=== PATIENT | female | born 1980 | race African-American/Black ===

== ENCOUNTER 2017-03-12 08:13 | Emergency (ER) | payer SELFPAY ==
--- NOTE | 2017-03-12 08:33 | ER Document Report ---
ED General - General Chief Complaint: Abdominal Pain Stated Complaint: STOMACH PAIN Mode of Arrival: Ambulatory Information source: Patient Notes: Patient presents to the emergency department with complaints of lower abdominal discomfort, smelly vaginal discharge, itchy for the past 2-3 days. Patient denies pain with void. She denies fever vomiting diarrhea. She reports this has happened before after she is finished her menses. Patient reports one sexual partner, reports she is . Denies STD. TRAVEL OUTSIDE OF THE [place] IN LAST 30 DAYS: No - HPI Onset: Other - 3 days Onset/Duration: Persistent Quality of pain: Other - Discomfort Severity: Mild Pain Level: 1 Associated symptoms: Other - Smelly vaginal discharge - Related Data Allergies/Adverse Reactions: No Known Allergies Allergy (Verified 03/12/17 08:20) Past Medical History - General Information source: Patient Last Menstrual Period: moderate - Social History Smoking Status: Unknown if Ever Smoked Cigarette use (# per day): No Chew tobacco use (# tins/day): No Frequency of alcohol use: None Drug Abuse: None Occupation: [employer] Lives with: Family Family History: Reviewed & Not Pertinent Patient has suicidal ideation: No Patient has homicidal ideation: No - Medical History Medical History: Negative Renal/ Medical History: Denies: Hx Peritoneal Dialysis Past Surgical History: Reports: Hx Gynecologic Surgery - ovarian cyst removal - Immunizations Hx Diphtheria, Pertussis, Tetanus Vaccination: No Review of Systems - Review of Systems Notes: Review HPI for review of systems., All other systems negative Physical Exam - Vital signs Vitals: Temp Pulse Resp BP Pulse Ox 98.2 F 87 20 140/79 H 100 03/12/17 08:20 03/12/17 08:20 03/12/17 08:20 03/12/17 08:20 03/12/17 08:20 - Notes Notes: PHYSICAL EXAMINATION: GENERAL: Well-appearing and in no acute distress HEAD: Atraumatic, normocephalic. EYES: Pupils equal round and reactive to light, extraocular movements intact, sclera anicteric, conjunctiva are normal. ENT: nares patent, oropharynx clear without exudates. Moist mucous membranes. NECK: Normal range of motion, supple without lymphadenopathy LUNGS: CTAB and equal. No wheezes rales or rhonchi. HEART: Regular rate and rhythm without murmurs ABDOMEN: Soft, no tenderness. No guarding, no rebound EXTREMITIES: Normal range of motion, no pitting edema. No cyanosis. NEUROLOGICAL: Cranial nerves grossly intact. Normal sensory/motor exams. PSYCH: Normal mood, normal affect. SKIN: Warm, Dry, normal turgor, no rashes or lesions noted Course - Re-evaluation Re-evalutation: 03/12/17 09:36 Patient tolerated pelvic without any problems. Cultures sent. 03/12/17 She was instructed on trichomonas. Patient reports that she did not tell her that she had trichomonas last time she was here and diagnosed with it. We discussed trichomonas, STD. Patient was instructed to contact her so he can be treated. Patient also opted to leave now without results of GC chlamydia. She will be contacted should she need treatment. She was instructed to follow-up with the health department for recheck. She verbalized understanding to all instructions. - Vital Signs Vital signs: Temp Pulse Resp BP Pulse Ox 98.1 F 72 14 135/84 H 100 03/12/17 10:48 03/12/17 10:48 03/12/17 10:48 03/12/17 10:48 03/12/17 10:48 - Laboratory Result Diagrams: 03/12/17 09:12 03/12/17 09:12 Laboratory results interpreted by me: 03/12/17 03/12/17 03/12/17 09:12 09:12 09:19 Hgb 9.2 L Hct 29.5 L MCV 62 L MCH 19.4 L MCHC 31.1 L RDW 21.0 H Sodium 145.3 H Chloride 108 H Ur Leukocyte Esterase MODERATE H Procedures - Pelvic Exam Pelvic exam Cultures obtained: Yes Wet prep obtained: Yes Herpes culture obtained: No POC sent to lab: No Foreign body removed: No Bimanual exam performed: Yes Witnessed by: Tanner Fry PCP Discharge - Discharge Clinical Impression: Elevated blood pressure reading, Vaginal discharge, Trichomonas infection Anemia Qualifiers: Anemia type: unspecified type Qualified Code(s): D64.9 - Anemia, unspecified Condition: Stable Disposition: HOME, SELF-CARE Instructions: Abdominal Pain ([facility]), Metronidazole ([facility]), [facility], Trichomonas Infection ([facility]), Anemia, Iron Deficiency ([facility]) Additional Instructions: *You have been evaluated for vaginal discharge, trichomonas, anemia *The STD cultures are pending, you will be contacted should you need treatment *Take medication as prescribed *Follow up with your S[employer] L[employer]AGE [employer]PRETER or the health department for recheck *Avoid sexual intercourse until follow up *Return to ED for worsening condition, changes, needs Prescriptions: Metronidazole [Flagyl 500 mg Tablet] 500 mg PO BID #14 tablet Forms: Elevated Blood Pressure
[2017-03-12 09:19] LABS: ABSOLUTE BASOPHILS # (AUTO) 0.1 10^3/uL (0.0-0.2); ABSOLUTE EOSINOPHILS # (AUTO) 0.1 10^3/uL (0.0-0.6); ABSOLUTE LYMPHOCYTES (AUTO) 1.6 10^3/uL (0.5-4.7); ABSOLUTE MONOCYTES (AUTO) 0.4 10^3/uL (0.1-1.4); ABSOLUTE NEUT (AUTO) 2.7 10^3/uL (1.7-8.2); BASOPHILS % (AUTO) 1.6 % (0-2); EOSINOPHILS % (AUTO) 2.4 % (0-6); HEMATOCRIT 29.5 % (36.0-47.0); HEMOGLOBIN 9.2 g/dL (12.0-15.5); HGB HCT DIFFERENCE -1.9; LYMPHOCYTES % (AUTO) 31.8 % (13-45); MEAN CORPUSCULAR HEMOGLOBIN 19.4 pg (27.0-33.4); MEAN CORPUSCULAR HGB CONC 31.1 g/dL (32.0-36.0); MONOCYTES % (AUTO) 8.7 % (3-13); RED BLOOD COUNT 4.74 10^6/uL (3.72-5.28); SEGMENTED NEUTROPHILS % (AUTO) 55.5 % (42-78)
[2017-03-12 09:37] LABS: ALANINE AMINOTRANSFERASE 19 U/L (9-52); ALBUMIN 4.6 g/dL (3.5-5.0); ALKALINE PHOSPHATASE 53 U/L (38-126); ANION GAP 14 (5-19); ASPARTATE AMINO TRANSFERASE 15 U/L (14-36); BILIRUBIN,DIRECT 0.1 mg/dL (0.0-0.4); BILIRUBIN,TOTAL 0.5 mg/dL (0.2-1.3); BLOOD UREA NITROGEN 12 mg/dL (7-20); CALCIUM 9.5 mg/dL (8.4-10.2); CARBON DIOXIDE 23 mmol/L (22-30); CHLORIDE 108 mmol/L (98-107); CREATININE RESULT 0.72 mg/dL (0.52-1.25); GLUCOSE 101 mg/dL (75-110); POTASSIUM 4.2 mmol/L (3.6-5.0); SODIUM 145.3 mmol/L (137-145); TOTAL PROTEIN 8.2 g/dL (6.3-8.2)
[2017-03-12 09:47] LABS: APPEARANCE,URINE CLEAR; BILIRUBIN,URINE NEGATIVE (NEGATIVE); GLUCOSE, URINE NEGATIVE (NEGATIVE); KETONES,URINE NEGATIVE (NEGATIVE); LEUKOCYTE ESTERASE,URINE MODERATE (NEGATIVE); NITRITE,URINE NEGATIVE (NEGATIVE); PROTEIN,URINE NEGATIVE (NEGATIVE); URINE SPECIFIC GRAVITY 1.021; UROBILINOGEN,URINE NEGATIVE mg/dL (<2.0)
[2017-03-12 10:07] LABS: MEAN CORPUSCULAR VOLUME 62 fl (80-97); OVALOCYTES 3+; POIKILOCYTOSIS 3+; WHITE BLOOD COUNT 4.9 10^3/uL (4.0-10.5)
[2017-03-12 10:08] LABS: ANISOCYTOSIS 2+; MICROCYTOSIS 3+; POLYCHROMASIA SLIGHT; ROULEAUX SLIGHT; SCHISTOCYTES 1+
[2017-03-12 10:52] VITALS: BP 135/84
[2017-03-12 12:37] LABS: CHLAM PCR NOT DETECTED (NOT DETECT)
[2017-03-12 15:27] LABS: PATH REVIEW PATHOLOGIST REVIEWED
== END 2017-03-12 10:53 | disposition home or self-care (01) ==
LOC: ER 08:13
DX: A59.9 Trichomoniasis, unspecified (principal); R03.0 Elevated blood-pressure reading, without diagnosis of hypertension; D64.9 Anemia, unspecified; N89.8 Other specified noninflammatory disorders of vagina; R10.9 Unspecified abdominal pain
CPT/HCPCS: 36415; 80053; 81001; 84703; 85025; 87210; 87491; 87591; 99284

== ENCOUNTER 2017-03-25 11:42 | Emergency (ER) | payer SELFPAY ==
--- NOTE | 2017-03-25 12:07 | ER Document Report ---
HPI - HPI Patient complains to provider of: cough, sore throat Onset/Duration: Persistent Quality of pain: Achy Pain Level: 2 Context: She presents to the emergency department with cough and sputum for the last 4-5 days since Friday. Also complains of sore throat. Denies fever vomiting diarrhea. Reports she feels like she is rattling when she lays down. Denies past medical history of asthma cardiac disease. Associated Symptoms: Sore throat Exacerbated by: Denies Relieved by: Denies Similar symptoms previously: No Recently seen / treated by doctor: No - REPRODUCTIVE LMP: 03/15/17 Reproductive: DENIES: : - DERM Skin Color: Normal Past Medical History - General Information source: Patient - Social History Smoking Status: Unknown if Ever Smoked Cigarette use (# per day): No Frequency of alcohol use: None Drug Abuse: None Occupation: [employer] Lives with: Family Family History: Reviewed & Not Pertinent Patient has suicidal ideation: No Patient has homicidal ideation: No - Medical History Medical History: Negative Renal/ Medical History: Denies: Hx Peritoneal Dialysis Past Surgical History: Reports: Hx Gynecologic Surgery - ovarian cyst removal - Immunizations Hx Diphtheria, Pertussis, Tetanus Vaccination: No Vertical Provider Document - CONSTITUTIONAL Agree With Documented VS: Yes Exam Limitations: No Limitations General Appearance: WD/WN, No Apparent Distress - INFECTION CONTROL TRAVEL OUTSIDE OF THE [place] IN LAST 30 DAYS: No - HEENT HEENT: Atraumatic, Normocephalic, Pharyngeal Erythema - No peritonsillar abscess good clear voice no trismus. negative: Conjuctival Injection, Pharyngeal Exudate, Tympanic Membrane Red, Tympanic Membrane Bulging - NECK Neck: Normal Inspection, Supple. negative: Lymphadenopathy-Left, Lymphadenopathy-Right - RESPIRATORY Respiratory: No Respiratory Distress, Rhonchi. negative: Wheezing O2 Sat by Pulse Oximetry: 100 - CARDIOVASCULAR Cardiovascular: Regular Rate, Regular Rhythm - GI/ABDOMEN Gastrointestinal: Abdomen Soft, Abdomen Non-Tender - BACK Back: Normal Inspection - MUSCULOSKELETAL/EXTREMETIES Musculoskeletal/Extremeties: EDITH SERRANO - NEURO Level of Consciousness: Awake, Alert, Appropriate Motor/Sensory: No Motor Deficit - DERM Integumentary: Warm, Dry, No Rash Course - Re-evaluation Re-evalutation: 03/25/17 13:33 Patient instructed on RML pneumonia, zithromax, norco, steroids. Patient instructed on importance of monitoring temperature Tylenol as indicated. Patient verbalized understanding to all instructions. No Shortness of breath, speaks in clear sentences. - Vital Signs Vital signs: Temp Pulse Resp BP Pulse Ox 98.2 F 91 20 142/95 H 100 03/25/17 11:53 03/25/17 11:53 03/25/17 11:53 03/25/17 11:53 03/25/17 11:53 - Diagnostic Test Radiology reviewed: Image reviewed, Reports reviewed - rml Pneumonia Discharge - Discharge Clinical Impression: Cough, Sore throat Pneumonia Qualifiers: Laterality: right Lung location: middle lobe of lung Condition: Stable Disposition: HOME, SELF-CARE Instructions: Pneumonia ([facility]), Azithromycin ([facility]), Steroid Medication, Oral Narcotic Medication ([facility]), Sore Throat ([facility]) Additional Instructions: *You have been evaluated for a cough, pneumonia, bronchitis *Take medication as prescribed *Increase fluids *Monitor your temperature, take Tylenol as indicated *Follow up with a primary care provider within one week for recheck *Return to ED for increasing fever, cough, worsening condition, changes, needs Prescriptions: Azithromycin 250 mg PO DAILY #4 tablet Hydrocodone/Acetaminophen [[place] 5-325 Tablet] 1 each PO QID #15 tablet Prednisone [Deltasone 20 mg Tablet] 60 mg PO DAILY #9 tablet Forms: Elevated Blood Pressure, Return to Work
[2017-03-25] MEDS ORDERED: PREDNISONE 20 MG TABLET PO ONE (13:16)
[2017-03-25] MEDS ORDERED: AZITHROMYCIN 250 MG TABLET PO ONE (13:16)
[2017-03-25 13:55] VITALS: BP 140/90
== END 2017-03-25 13:55 | disposition home or self-care (01) ==
LOC: ER 11:42
DX: J18.9 Pneumonia, unspecified organism (principal); R05 Cough; J02.9 Acute pharyngitis, unspecified
CPT/HCPCS: 99283; 87070; 87880; 71020; J7512

== ENCOUNTER 2017-09-01 11:33 | Emergency (ER) | payer SELFPAY ==
[2017-09-01] MEDS: NORMAL SALINE 1000 ML 1,000 ML IV PRN ×2 (12:27→13:33)
[2017-09-01 12:48] LABS: HEMOGLOBIN 9.5 g/dL (12.0-15.5); HGB HCT DIFFERENCE -1.5; MEAN CORPUSCULAR HEMOGLOBIN 22.7 pg (27.0-33.4); MEAN CORPUSCULAR HGB CONC 31.8 g/dL (32.0-36.0); MEAN CORPUSCULAR VOLUME 71 fl (80-97); RED BLOOD COUNT 4.21 10^6/uL (3.72-5.28); RED CELL DISTRIBUTION WIDTH 21.1 % (11.5-14.0); WHITE BLOOD COUNT 7.6 10^3/uL (4.0-10.5)
[2017-09-01 13:05] LABS: ANION GAP 11 (5-19); BLOOD UREA NITROGEN 9 mg/dL (7-20); CALCIUM 9.2 mg/dL (8.4-10.2); CARBON DIOXIDE 25 mmol/L (22-30); CHLORIDE 103 mmol/L (98-107); CREATININE RESULT 0.76 mg/dL (0.52-1.25); GLUCOSE 101 mg/dL (75-110); POTASSIUM 4.6 mmol/L (3.6-5.0); SODIUM 138.7 mmol/L (137-145)
[2017-09-01 13:32] LABS: BASOPHILS % (MANUAL) 0 % (0-2); EOSINOPHILS % (MANUAL) 1 % (0-6); LYMPHOCYTES % (MANUAL) 11 % (13-45); TOTAL CELLS COUNTED 100
[2017-09-01 13:39] LABS: ANISOCYTOSIS 3+; HYPOCHROMASIA 2+; MICROCYTOSIS 1+; POIKILOCYTOSIS 1+; POLYCHROMASIA 1+; TOXIC GRANULATION SLIGHT; TOXIC VACUOLATION PRESENT
[2017-09-01 13:40] LABS: TEAR DROP CELLS SLIGHT
[2017-09-01 13:42] LABS: OVALOCYTES 3+
[2017-09-01] MEDS ORDERED: ONDANSETRON HCL INJ/PF 4 MG/2 ML SDV IV ONE (13:55)
[2017-09-01] MEDS ORDERED: KETOROLAC TROMETHAMINE INJ/PF 30 MG/1 ML SDV IV ONE (13:55)
--- NOTE | 2017-09-01 13:58 | ER Document Report ---
ED General - General Chief Complaint: Insect Bite Stated Complaint: INSECT BITE LT LEG Time Seen by Provider: 09/01/17 12:07 TRAVEL OUTSIDE OF THE [place] IN LAST 30 DAYS: No - HPI Patient complains to provider of: Insect bites tachycardia headache Notes: Patient coming in for evaluation of insect bites. Patient states that she is concerned that they are infected they are itchy and painful on the left thigh. Patient states also feeling feverish and having chills and possible night sweats. Upon triage patient was noted to have a heart rate at 130. Patient denies any recent travel denies measured fever. Denies any recent antibiotics. Upon my evaluation patient is fully cloth - Related Data Allergies/Adverse Reactions: No Known Allergies Allergy (Verified 03/25/17 11:49) Past Medical History - Social History Smoking Status: Never Smoker Chew tobacco use (# tins/day): No Frequency of alcohol use: None Drug Abuse: None Family History: Reviewed & Not Pertinent Patient has suicidal ideation: No Patient has homicidal ideation: No Renal/ Medical History: Denies: Hx Peritoneal Dialysis Past Surgical History: Reports: Hx Gynecologic Surgery - ovarian cyst removal - Immunizations Hx Diphtheria, Pertussis, Tetanus Vaccination: No Review of Systems - Review of Systems Constitutional: No symptoms reported EENT: No symptoms reported Cardiovascular: No symptoms reported Respiratory: No symptoms reported Gastrointestinal: No symptoms reported Genitourinary: No symptoms reported Female Genitourinary: No symptoms reported Musculoskeletal: No symptoms reported Skin: Other - Inset bite Hematologic/Lymphatic: No symptoms reported Neurological/Psychological: No symptoms reported Physical Exam - Vital signs Vitals: Temp Pulse Resp BP Pulse Ox 99.0 F 129 H 20 150/84 H 100 09/01/17 11:38 09/01/17 11:38 09/01/17 11:38 09/01/17 11:38 09/01/17 11:38 Interpretation: Normal - General General appearance: Appears well, Alert - HEENT Head: Normocephalic, Atraumatic Eyes: Normal Pupils: PERRL - Respiratory Respiratory status: No respiratory distress Chest status: Nontender Breath sounds: Normal Chest palpation: Normal - Cardiovascular Rhythm: Regular, Tachycardia Heart sounds: Normal auscultation Murmur: No - Abdominal Inspection: Normal Distension: No distension Bowel sounds: Normal Tenderness: Nontender Organomegaly: No organomegaly - Back Back: Normal, Nontender - Extremities General upper extremity: Normal inspection, Nontender, Normal color, Normal ROM , Normal temperature General lower extremity: Normal inspection, Nontender, Normal color, Normal ROM , Normal temperature, Normal weight bearing. No: Maco's sign - Neurological Neuro grossly intact: Yes Cognition: Normal Orientation: AAOx4 Micki Coma Scale Eye Opening: Spontaneous [place] Coma Scale Verbal: Oriented [place] Coma Scale Motor: Obeys Commands [place] Coma Scale Total: 15 Speech: Normal Motor strength normal: LUE, RUE, LLE, RLE Sensory: Normal - Psychological Associated symptoms: Normal affect, Normal mood - Skin Skin Temperature: Warm - The initial evaluation was performed as patient was not ending down however was able to auscultate the patient's heart rate which was tachycardic patient stating that her bug bites were extremely painful concerning for infection so initial workup included CBC blood cultures and IV fluids. After this was performed and patient was placed in a gown I went back to reevaluate the patient patient has 2 small bug bites on the left upper thigh with no signs of infection this was confirmed with bedside ultrasound showing no signs of abscess. Both bug bites are less than half a centimeter. Skin Moisture: Dry Skin Color: Normal Course - Re-evaluation Re-evalutation: 09/01/17 15:38 Initially presentation due to tachycardia concerning for significant infection due to bug bites however after laboratory studies were performed and patient was placed in a gown reevaluation should to normal-looking insect bites of unclear etiology. No signs of infection abscess. Patient states still has had a global headache we will give ketorolac Zofran otherwise no signs of sepsis will discharge home. - Vital Signs Vital signs: Temp Pulse Resp BP Pulse Ox 99.0 F 98 18 138/69 H 98 09/01/17 11:38 09/01/17 14:01 09/01/17 14:01 09/01/17 14:01 09/01/17 14:01 - Laboratory Result Diagrams: 09/01/17 12:30 09/01/17 12:30 Laboratory results interpreted by me: 09/01/17 12:30 Hgb 9.5 L Hct 30.0 L MCV 71 L MCH 22.7 L MCHC 31.8 L RDW 21.1 H Lymphocytes % (Manual) 11 L Monocytes % (Manual) 14 H Discharge - Discharge Clinical Impression: Tachycardia resolved Insect bites Qualifiers: Encounter type: initial encounter Qualified Code(s): W57.XXXA - Bitten or stung by nonvenomous insect and other nonvenomous arthropods, initial encounter Headache Qualifiers: Headache type: unspecified Headache chronicity pattern: unspecified pattern Intractability: not intractable Qualified Code(s): R51 - Headache Condition: Good Disposition: HOME, SELF-CARE Instructions: Headache ([facility]), Insect Bites ([facility]) Additional Instructions: Continue to apply antibiotic ointment to your insect bites. There is no signs of daily living infection. Return to ER if symptoms worsen.
[2017-09-01 14:02] VITALS: BP 138/69
== END 2017-09-01 14:17 | disposition home or self-care (01) ==
LOC: ER 11:33
DX: S70.362A Insect bite (nonvenomous), left thigh, initial encounter (principal); W57.XXXA Bitten or stung by nonvenomous insect and other nonvenomous arthropods, initial encounter; R00.0 Tachycardia, unspecified; R51 Headache
CPT/HCPCS: 99282; 96360; 96361; 36415; 87040; 85025; 80048; J7030

== ENCOUNTER 2018-09-16 08:47 | Emergency (ER) | payer SELFPAY ==
[2018-09-16 08:54] VITALS: BP 153/90
--- NOTE | 2018-09-16 10:02 | ER Document Report ---
ED Skin Rash/Insect Bite/Abscs - General Chief Complaint: Skin Problem Stated Complaint: POSSIBLE SPIDER BITE Time Seen by Provider: 09/16/18 09:40 Mode of Arrival: Ambulatory Information source: Patient Notes: Patient is a 38-year-old female comes emergency room complaining of a spider bite to her left lower extremity. Patient states this started approximately day before yesterday has gotten little worse. She also states that she had her yesterday put some peroxide on it and rub it in a pimple popped open. Overnight he expanded from small area to a large area and is very sensitive to touch as well as have pants rub against it. She denies knowing what it was that bit her but states she thought something at work in the grass. Patient denies any other medical problems TRAVEL OUTSIDE OF THE [place] IN LAST 30 DAYS: No - HPI Patient complains to provider of: Tender/swollen area, Possible insect bite Onset: Other - 2 days ago Onset/Duration: Sudden, Gradual Quality of pain: Burning, Pressure Severity: Moderate Pain Level: 3 Skin Character: Abscess, Erythema, Macules, Papules, Tenderness. No: Drainage Skin Temperature: Warm Quality of rash: Itchy, Painful Identify cause: No Exacerbated by: Movement, Walking Relieved by: Denies Similar symptoms previously: No Recently seen / treated by doctor: No - Related Data Allergies/Adverse Reactions: No Known Allergies Allergy (Verified 09/16/18 08:48) Past Medical History - General Information source: Patient - Social History Smoking Status: Never Smoker Cigarette use (# per day): No Chew tobacco use (# tins/day): No Smoking Education Provided: No Frequency of alcohol use: None Drug Abuse: None Family History: Reviewed & Not Pertinent Patient has suicidal ideation: No Patient has homicidal ideation: No Renal/ Medical History: Denies: Hx Peritoneal Dialysis Past Surgical History: Reports: Hx Gynecologic Surgery - ovarian cyst removal - Immunizations Hx Diphtheria, Pertussis, Tetanus Vaccination: No Review of Systems - Review of Systems Constitutional: No symptoms reported EENT: No symptoms reported Cardiovascular: No symptoms reported Respiratory: No symptoms reported Gastrointestinal: No symptoms reported Genitourinary: No symptoms reported Female Genitourinary: No symptoms reported Musculoskeletal: No symptoms reported Skin: See HPI, Lesions Hematologic/Lymphatic: No symptoms reported Neurological/Psychological: No symptoms reported -: Yes All other systems reviewed and negative Physical Exam - Vital signs Vitals: Temp Pulse Resp BP Pulse Ox 98.5 F 99 20 153/90 H 100 09/16/18 08:52 09/16/18 08:52 09/16/18 08:52 09/16/18 08:52 09/16/18 08:52 Interpretation: Hypertensive - Notes Notes: PHYSICAL EXAMINATION: GENERAL: Well-appearing, well-nourished and in no acute distress. HEAD: Atraumatic, normocephalic. EYES: Pupils equal round and reactive to light, extraocular movements intact, conjunctiva are normal. ENT: Nares patent, oropharynx clear without exudates. Moist mucous membranes. NECK: Normal range of motion, supple without lymphadenopathy LUNGS: Breath sounds clear to auscultation bilaterally and equal. No wheezes rales or rhonchi. HEART: Regular rate and rhythm without murmurs ABDOMEN: Soft, nontender, nondistended abdomen. No guarding, no rebound. No masses appreciated. Female : deferred Musculoskeletal: Normal range of motion, no pitting or edema. No cyanosis. NEUROLOGICAL: Cranial nerves grossly intact. Normal speech, normal gait. Normal sensory, motor exams PSYCH: Normal mood, normal affect. SKIN: There is an area on patient's left lower extremity lateral side of the calf that is in total distance 6 cm across and 6 cm perpendicular. Basically it is forming a huge coquille. There is an area in the center that is approximately 1 cm that is firm tender to palpate and appears to have a small pustule in it. The surrounding soft tissue is cellulitic in nature. There is no depth to the pustule in the middle. Course - Re-evaluation Re-evalutation: 09/16/18 10:02 On the examination of the area at the 6 cm with a 1 cm firm area in the small pustule this on top I do not believe already for an I&D at this point. I did offer the patient the option of allowing me to try and she declined. I also attempted to try to pop the pustule and patient cannot stand the discomfort. I I agree that this time we do not need to go much further I think she is here for and will benefit completely from an antibiotic standpoint. She will continue to use warm compresses on it I informed her that if it comes to ahead to return to ER we can open it up then but have instilled in her that she should not attempt to pop it herself. I also told her not to use any more peroxide. Patient is in agreement with this plan and will return if he gets any bigger. She wants the option of the antibiotics to work first. - Vital Signs Vital signs: Temp Pulse Resp BP Pulse Ox 98.5 F 99 20 153/90 H 100 09/16/18 08:52 09/16/18 08:52 09/16/18 08:52 09/16/18 08:52 09/16/18 08:52 Discharge - Discharge Clinical Impression: Cellulitis of left lower extremity Condition: Stable Disposition: HOME, SELF-CARE Instructions: Cellulitis ([facility]) Additional Instructions: Home and rest. Use warm moist compresses as we discussed. Should the area increase in size or should the area expanded become more of a pustule return to ER for us to open it up. Should you have any concerns at all return to ER for recheck. Take all of the antibiotics as we discussed. Return to ER again if you have any concerns. Prescriptions: Fluconazole [Diflucan] 150 mg PO ONCE PRN #1 tablet PRN Reason: Sulfamethoxazole/Trimethoprim [Bactrim 400-80 mg Tablet] 1 each PO BID #20 tablet Forms: Elevated Blood Pressure
== END 2018-09-16 10:14 | disposition home or self-care (01) ==
LOC: ER 08:47
DX: L03.116 Cellulitis of left lower limb (principal); W57.XXXA Bitten or stung by nonvenomous insect and other nonvenomous arthropods, initial encounter
CPT/HCPCS: 99282

== ENCOUNTER 2018-09-23 09:31 | Emergency (ER) | payer SELFPAY ==
[2018-09-23] MEDS ORDERED: NORMAL SALINE 1000 ML 1,000 ML IV ONE (10:07)
[2018-09-23] MEDS ORDERED: CEFTRIAXONE 2 GM/D5W RTU 2 GM/50 ML RTUPB IV ONE (10:07)
--- NOTE | 2018-09-23 10:08 | ER Document Report ---
ED Medical Screen (RME) - General Chief Complaint: Wound Infection Stated Complaint: LEFT LEG PAIN Time Seen by Provider: 09/23/18 10:05 Notes: 38 years old female has a left lower leg wound treated with Bactrim for the last 8 days, not responding. In fact is getting worse. Entire left calf as swelling erythema extending all the way down to the ankle, discharging serosanguineous fluid. Also in pain therefore present to the ED. No fever chills or other constitutional symptoms. TRAVEL OUTSIDE OF THE [place] IN LAST 30 DAYS: No - Related Data Allergies/Adverse Reactions: No Known Allergies Allergy (Verified 09/23/18 09:40) Past Medical History - Social History Chew tobacco use (# tins/day): No Frequency of alcohol use: None Drug Abuse: None Renal/ Medical History: Denies: Hx Peritoneal Dialysis Past Surgical History: Reports: Hx Gynecologic Surgery - ovarian cyst removal - Immunizations Hx Diphtheria, Pertussis, Tetanus Vaccination: No Physical Exam - Vital signs Vitals: Temp Pulse Resp BP Pulse Ox 98.4 F 89 16 143/80 H 100 09/23/18 09:41 09/23/18 09:41 09/23/18 09:41 09/23/18 09:41 09/23/18 09:41 Course - Vital Signs Vital signs: Temp Pulse Resp BP Pulse Ox 98.4 F 89 16 143/80 H 100 09/23/18 09:41 09/23/18 09:41 09/23/18 09:41 09/23/18 09:41 09/23/18 09:41
--- NOTE | 2018-09-23 11:05 | ER Document Report ---
ED General - General Chief Complaint: Wound Infection Stated Complaint: LEFT LEG PAIN Time Seen by Provider: 09/23/18 10:05 Mode of Arrival: Ambulatory Information source: Patient Notes: 38-year-old female presents emergency department with complaints of left lower leg pain. Patient states that she was seen in the emergency department a week ago and started on Bactrim for a skin infection. Patient thinks she had a spider bite that developed into an abscess Patient states that the Bactrim is not helping. She has been taking it every day as directed. Patient states that the erythema is worsening. She is now having purulent drainage from an abscess on her left calf. Patient denies any fever or chills. TRAVEL OUTSIDE OF THE [place] IN LAST 30 DAYS: No - HPI Onset: Last week Onset/Duration: Gradual Associated symptoms: None Exacerbated by: Denies Relieved by: Denies Similar symptoms previously: Yes Recently seen / treated by doctor: Yes - Related Data Allergies/Adverse Reactions: No Known Allergies Allergy (Verified 09/23/18 09:40) Past Medical History - General Information source: Patient - Social History Smoking Status: Never Smoker Chew tobacco use (# tins/day): No Frequency of alcohol use: None Drug Abuse: None Family History: Reviewed & Not Pertinent Patient has suicidal ideation: No Patient has homicidal ideation: No Renal/ Medical History: Denies: Hx Peritoneal Dialysis Past Surgical History: Reports: Hx Gynecologic Surgery - ovarian cyst removal - Immunizations Hx Diphtheria, Pertussis, Tetanus Vaccination: No Review of Systems - Review of Systems Constitutional: No symptoms reported EENT: No symptoms reported Cardiovascular: No symptoms reported Respiratory: No symptoms reported Gastrointestinal: No symptoms reported Genitourinary: No symptoms reported Female Genitourinary: No symptoms reported Musculoskeletal: Muscle pain, Leg swelling Skin: Change in color Hematologic/Lymphatic: No symptoms reported Neurological/Psychological: No symptoms reported -: Yes All other systems reviewed and negative Physical Exam - Vital signs Vitals: Temp Pulse Resp BP Pulse Ox 98.4 F 89 16 143/80 H 100 09/23/18 09:41 09/23/18 09:41 09/23/18 09:41 09/23/18 09:41 09/23/18 09:41 - General General appearance: Appears well, Alert Notes: PHYSICAL EXAMINATION: GENERAL: Well-appearing, well-nourished and in no acute distress. HEAD: Atraumatic, normocephalic. EYES: Pupils equal round and reactive to light, extraocular movements intact, conjunctiva are normal. ENT: Nares patent, oropharynx clear without exudates. Moist mucous membranes. NECK: Normal range of motion, supple without lymphadenopathy LUNGS: Breath sounds clear to auscultation bilaterally and equal. No wheezes rales or rhonchi. HEART: Regular rate and rhythm without murmurs ABDOMEN: Soft, nontender, nondistended abdomen. No guarding, no rebound. No masses appreciated. Female : deferred Musculoskeletal: Normal range of motion. Open draining abscess to the left calf with surrounding erythema. Abscess is approximately 6cm. Purulent material appreciated. L calf tenderness to palpation. 2+DP/PT pulses. NEUROLOGICAL: Cranial nerves grossly intact. Normal speech, normal gait. Normal sensory, motor exams PSYCH: Normal mood, normal affect. SKIN: Warm, Dry, normal turgor, no rashes or lesions noted. Course - Re-evaluation Re-evalutation: 09/23/18 12:49 Ultrasound obtained. Abscess appreciated. No DVT. Patient's vital signs are stable. Patient declines I&D or admission to the hospital. Patient received IV antibiotics in the ED. I will change the antibiotic. Instructed the patient to take the medication prescribed as directed, to follow-up with her primary care physician this week, and to return to the emergency department for worsening symptoms. Patient is agreeable to plan of care. - Vital Signs Vital signs: Temp Pulse Resp BP Pulse Ox 98.4 F 89 16 143/80 H 100 09/23/18 09:41 09/23/18 09:41 09/23/18 09:41 09/23/18 09:41 09/23/18 09:41 Discharge - Discharge Clinical Impression: Abscess Condition: Good Disposition: HOME, SELF-CARE Instructions: Abscess ([facility]) Prescriptions: Doxycycline Hyclate 100 mg PO BID #14 capsule Referrals: FANY NAYAK DO [NO LOCAL MD] - Follow up as needed
[2018-09-23] MEDS ORDERED: CEFTRIAXONE INJ 1000 MG VIAL ONE (11:45)
--- NOTE | 2018-09-23 12:38 | RADIOLOGY REPORT (SQ) ---
EXAM DESCRIPTION: U/S EXTREMITY NONVASCULAR LTD COMPLETED DATE/TIME: 09/23/2018 12:26 pm REASON FOR STUDY: Left lower leg swelling/abscess COMPARISON: None. TECHNIQUE: Dynamic and static grayscale images acquired of the localized site of clinical concern an d recorded on PACS. Additional selected color Doppler and spectral images recorded. SITE OF CONCERN: Left lateral calf. LIMITATIONS: None. FINDINGS: Irregular heterogenous fluid collection located just below the skin surface, measuring 0.9 x 1.6 cm. IMPRESSION: IRREGULAR HETEROGENOUS FLUID COLLECTION MOST LIKELY DUE TO A DEVELOPING ABSCESS. TECHNICAL DOCUMENTATION: JOB ID: [id number] [employer]- All Rights Reserved Reading location - IP/workstation name: [email or web address]
[2018-09-23 13:19] VITALS: BP 149/97
== END 2018-09-23 13:19 | disposition home or self-care (01) ==
LOC: ER 09:31
DX: L02.416 Cutaneous abscess of left lower limb (principal)
CPT/HCPCS: 99283; 96372; 87070; 87205; 87077; 87186; 76882; J0696

== ENCOUNTER 2018-10-16 12:43 | Emergency (ER) | payer SELFPAY ==
--- NOTE | 2018-10-16 13:08 | ER Document Report ---
ED Medical Screen (RME) - General Chief Complaint: Abdominal Pain Stated Complaint: FEVER Time Seen by Provider: 10/16/18 13:03 Notes: 38-year-old female patient complaining of 1-2 weeks of abdominal pain that started in the right lower quadrant, then became generalized. She reports that it has "dulled down" some since it started. She also complains of fever chills , chest pain, headaches. She reports she has been nauseous with queasy stomach , and decreased appetite. She also complains of shortness of breath with a light cough. I have greeted and performed a rapid initial assessment of this patient. A comprehensive ED assessment and evaluation of the patient, analysis of test results and completion of the medical decision making process will be conducted by additional ED providers. TRAVEL OUTSIDE OF THE [place] IN LAST 30 DAYS: No - Related Data Allergies/Adverse Reactions: No Known Allergies Allergy (Verified 10/16/18 12:45) Past Medical History - Social History Chew tobacco use (# tins/day): No Drug Abuse: None Renal/ Medical History: Denies: Hx Peritoneal Dialysis Past Surgical History: Reports: Hx Gynecologic Surgery - ovarian cyst removal - Immunizations Hx Diphtheria, Pertussis, Tetanus Vaccination: No Physical Exam - Vital signs Vitals: Temp Pulse Resp BP Pulse Ox 98.1 F 117 H 18 146/92 H 97 10/16/18 12:47 10/16/18 12:47 10/16/18 12:47 10/16/18 12:47 10/16/18 12:47 Course - Vital Signs Vital signs: Temp Pulse Resp BP Pulse Ox 98.1 F 117 H 18 146/92 H 97 10/16/18 12:47 10/16/18 12:47 10/16/18 12:47 10/16/18 12:47 10/16/18 12:47
[2018-10-16 14:09] LABS: ALANINE AMINOTRANSFERASE 31 U/L (9-52); ALBUMIN 3.9 g/dL (3.5-5.0); ALKALINE PHOSPHATASE 100 U/L (38-126); ANION GAP 11 (5-19); ASPARTATE AMINO TRANSFERASE 39 U/L (14-36); BILIRUBIN,DIRECT 0.4 mg/dL (0.0-0.4); BLOOD UREA NITROGEN 9 mg/dL (7-20); CALCIUM 9.3 mg/dL (8.4-10.2); CARBON DIOXIDE 27 mmol/L (22-30); CHLORIDE 103 mmol/L (98-107); GLUCOSE 103 mg/dL (75-110); POTASSIUM 4.2 mmol/L (3.6-5.0); SODIUM 140.8 mmol/L (137-145)
[2018-10-16] MEDS ORDERED: FAMOTIDINE 20 MG TABLET PO ONE (14:46)
[2018-10-16] MEDS ORDERED: ONDANSETRON 4 MG TAB.RAPDIS PO ONE (14:46)
--- NOTE | 2018-10-16 14:53 | ER Document Report ---
ED General - General Chief Complaint: Abdominal Pain Stated Complaint: FEVER Time Seen by Provider: 10/16/18 13:03 TRAVEL OUTSIDE OF THE [place] IN LAST 30 DAYS: No - HPI Notes: Patient is a 38-year-old female no significant past medical history aside from ovarian cysts who presents to the ED complaining of urinary urgency and frequency over the last several days as well as having intermittent lower abdominal discomfort that would generalized across the abdomen. Patient states that her discomfort felt was nothing as severe as her ovarian cyst and does not believe it is that. Patient states that she also had a fever over the last 3 days which has since improved. Patient states that she did have some feeling of phlegm in the back of her throat when she would lay down, but denies any chest pain. Patient states that she did try to explain to the previous provider , but is not sure if it came across as such. Patient states that she currently does not have any abdominal pain. She has not had any vaginal discharge, odor, or bleeding. She has no concern of STD or STI declines testing for it. Patient states that she is still able to eat and drink, but does have a decreased p.o. intake due to nausea. She is having normal bowel movements without any melena or hematochezia. She has no other concerns or complaints at this time. When asked where the point for the last site of when she had pain, she points to her suprapubic area. Patient is feeling better today than she did a few days ago. Denies any headache, fever, neck pain, URI, sore throat, chest pain, palpitations, syncope, cough, shortness of breath, wheeze, dyspnea, abdominal pain, nausea/vomiting/diarrhea, urinary retention, dysuria, hematuria , loss of control of bowel or bladder, numbness/tingling, saddle anesthesia, muscle paralysis/weakness, or rash. - Related Data Allergies/Adverse Reactions: No Known Allergies Allergy (Verified 10/16/18 12:45) Past Medical History - Social History Smoking Status: Never Smoker Chew tobacco use (# tins/day): No Drug Abuse: None Family History: Reviewed & Not Pertinent Patient has suicidal ideation: No Patient has homicidal ideation: No Renal/ Medical History: Denies: Hx Peritoneal Dialysis Past Surgical History: Reports: Hx Gynecologic Surgery - ovarian cyst removal - Immunizations Hx Diphtheria, Pertussis, Tetanus Vaccination: No Review of Systems - Review of Systems -: Yes All other systems reviewed and negative Physical Exam - Vital signs Vitals: Temp Pulse Resp BP Pulse Ox 98.1 F 117 H 18 146/92 H 97 10/16/18 12:47 10/16/18 12:47 10/16/18 12:47 10/16/18 12:47 10/16/18 12:47 - Notes Notes: PHYSICAL EXAMINATION: GENERAL: Well-appearing, well-nourished and in no acute distress. A&Ox4. Answers questions appropriately. HEAD: Atraumatic, normocephalic. EYES: Pupils equal round and reactive to light, extraocular movements intact, sclera anicteric, conjunctiva are normal. ENT: Nares patent and without discharge. oropharynx clear without exudates. No tonsilar hypertrophy or erythema. Moist mucous membranes. NECK: Normal range of motion, supple without lymphadenopathy LUNGS: Breath sounds clear to auscultation bilaterally and equal. No wheezes rales or rhonchi. HEART: Regular rate and rhythm without murmurs, rubs, gallops. ABDOMEN: Soft, nontender, nondistended abdomen. No guarding, no rebound. No masses appreciated. Normal bowel sounds present. No CVA tenderness bilaterally. Terrazas negative. no tenderness at McBurney point. Pt described feeling 'pressure' when palpating over the suprapubic area. : deferred. Pt declined. Musculoskeletal: FROM to passive/active. Strength 5+/5. Extremities: No cyanosis, clubbing, or edema b/l. Peripheral pulses 2+. Capillary refill less than 3 seconds. NEUROLOGICAL: Normal speech, normal gait. PSYCH: Normal mood, normal affect. SKIN: Warm, Dry, normal turgor, no rashes or lesions noted. Course - Re-evaluation Re-evalutation: 10/16/18 16:19 Patient is an afebrile, well-hydrated, 38-year-old female who presents to the ED with resolved abdominal pain, unspecified. Vitals are acceptable without any significant tachycardia, tachypnea, or hypoxia. PE is otherwise unremarkable. Patient's abdomen is soft and nontender. CBC, CMP, lipase, urinalysis, hCG were unremarkable for any acute pathology. Patient is nontoxic- appearing and is tolerating p.o. without difficulty. She has not had any worsening or recurrence of her symptoms throughout her stay. No further labs or imaging warranted at this time. I did review observation for appendicitis with the patient as the original origin of her pain was in the right lower abdomen/pelvic area. Pt was given zofran, pepcid, and toradol. Low suspicion/ risk for acute appendicitis, bowel obstruction, acute cholecystitis, acute cholangitis, perforated diverticulitis, incarcerated hernia, pancreatitis, perforated ulcer, peritonitis, sepsis, pelvic inflammatory disease, ectopic , tubo-ovarian abscess, ovarian torsion, or other systemic emergent condition at this time. Patient is aware that her condition can change from initial presentation and she needs to monitor symptoms closely and seek medical attention if any acute changes. Rx for zofran and omeprazole. Conservative measures otherwise for symptoms. Recheck with your PCM/OBGYN in 3-5 days. Consider consult with a aviation technical systems specialist. Return to the ED with any worsening /concerning symptoms otherwise as reviewed in discharge. Patient is in agreement. - Vital Signs Vital signs: Temp Pulse Resp BP Pulse Ox 98.1 F 117 H 18 146/92 H 97 10/16/18 12:47 10/16/18 12:47 10/16/18 12:47 10/16/18 12:47 10/16/18 12:47 - Laboratory Result Diagrams: 10/16/18 15:20 10/16/18 13:30 Laboratory results interpreted by me: 10/16/18 10/16/18 10/16/18 13:30 14:40 15:20 Hgb 9.1 L Hct 28.1 L MCV 70 L MCH 22.7 L RDW 19.9 H Monocytes % 16.9 H AST 39 H Ur Leukocyte Esterase TRACE H Discharge - Discharge Clinical Impression: Lower abdominal pain, unspecified Condition: Stable Disposition: HOME, SELF-CARE Instructions: Antinausea Medication ([facility]), Abdominal Pain ([facility]), Observation for Appendicitis ([facility]) Additional Instructions: Maintain adequate fluid and food intake Healthy diet Zofran as needed Omeprazole daily tylenol if needed Monitor for any worsening symptoms Make sure you are staying hydrated enough to urinate and have normal BM's Recheck with your PCM in 3-5 days Consider consult with Gastroenterology for ongoing/worsening symptoms Return to the ED with any worsening symptoms and/or development of fever, headache, chest pain, palpitations, syncope, shortness of breath, trouble breathing, abdominal pain, n/v/d, blood in stool/urine, weakness, or other worsening symptoms that are concerning to you. Prescriptions: Omeprazole 20 mg PO DAILY #30 tablet. Ondansetron [Zofran Odt 4 mg Tablet] 1 - 2 tab PO Q4H PRN #15 tab.rapdis PRN Reason: For Nausea/Vomiting Referrals: [facility] [Provider Group] - Follow up as needed SAMANTHA VAZQUEZ MD [ACTIVE STAFF] - Follow up as needed [facility] [Provider Group] - Follow up as needed
[2018-10-16 15:08] LABS: APPEARANCE,URINE SLIGHTLY-CLOUDY; BILIRUBIN,URINE NEGATIVE (NEGATIVE); COLOR,URINE YELLOW; GLUCOSE, URINE NEGATIVE (NEGATIVE); KETONES,URINE NEGATIVE (NEGATIVE); LEUKOCYTE ESTERASE,URINE TRACE (NEGATIVE); NITRITE,URINE NEGATIVE (NEGATIVE); PROTEIN,URINE NEGATIVE (NEGATIVE); URINE SPECIFIC GRAVITY 1.016; UROBILINOGEN,URINE NEGATIVE mg/dL (<2.0)
[2018-10-16 15:44] LABS: ABSOLUTE BASOPHILS # (AUTO) 0.1 10^3/uL (0.0-0.2); ABSOLUTE EOSINOPHILS # (AUTO) 0.1 10^3/uL (0.0-0.6); ABSOLUTE LYMPHOCYTES (AUTO) 1.2 10^3/uL (0.5-4.7); ABSOLUTE MONOCYTES (AUTO) 1.2 10^3/uL (0.1-1.4); ABSOLUTE NEUT (AUTO) 4.6 10^3/uL (1.7-8.2); BASOPHILS % (AUTO) 0.8 % (0-2); EOSINOPHILS % (AUTO) 1.3 % (0-6); HEMATOCRIT 28.1 % (36.0-47.0); HEMOGLOBIN 9.1 g/dL (12.0-15.5); LYMPHOCYTES % (AUTO) 16.3 % (13-45); MEAN CORPUSCULAR HEMOGLOBIN 22.7 pg (27.0-33.4); MEAN CORPUSCULAR HGB CONC 32.3 g/dL (32.0-36.0); MEAN CORPUSCULAR VOLUME 70 fl (80-97); MONOCYTES % (AUTO) 16.9 % (3-13); PLATELET COUNT 373 10^3/uL (150-450); RED CELL DISTRIBUTION WIDTH 19.9 % (11.5-14.0); SEGMENTED NEUTROPHILS % (AUTO) 64.7 % (42-78); TOTAL CELLS COUNTED % (AUTO) 100 %; WHITE BLOOD COUNT 7.1 10^3/uL (4.0-10.5)
[2018-10-16] MEDS ORDERED: KETOROLAC TROMETHAMINE 60 MG/2 ML SDV IM ONE (16:18)
[2018-10-16 17:15] VITALS: BP 143/100
== END 2018-10-16 17:16 | disposition home or self-care (01) ==
LOC: ER 12:43
DX: R10.30 Lower abdominal pain, unspecified (principal); R50.9 Fever, unspecified; R39.15 Urgency of urination; R35.0 Frequency of micturition; R10.84 Generalized abdominal pain
CPT/HCPCS: 99284; 96372; 36415; 87086; 83690; 84703; 85025; 80053; 81001; J1885; S0119

== ENCOUNTER 2019-07-21 10:11 | Emergency (ER) | payer OTHER ==
--- NOTE | 2019-07-21 11:42 | ER Document Report ---
HPI - HPI Time Seen by Provider: 07/21/19 10:53 Pain Level: 2 Context: Patient is a 39-year-old female presents to the emergency department with a chief complaint of right lower gum swelling and mild dental pain. Patient states the symptoms began 5 days ago. Patient states the gum swelling and discomfort has gotten worse. Patient denies drainage from the gum. Patient denies any dental injury or broken teeth. Patient states she has been switching her mouth with peroxide. Patient denies fever or facial swelling. Patient denies difficulty swallowing or breathing - CONSTITUTIONAL Constitutional: DENIES: Fever, Chills - REPRODUCTIVE Reproductive: DENIES: : Past Medical History - General Information source: Patient - Social History Smoking Status: Never Smoker Frequency of alcohol use: None Drug Abuse: None Lives with: Family Family History: Reviewed & Not Pertinent Patient has suicidal ideation: No Patient has homicidal ideation: No - Past Medical History Cardiac Medical History: Reports: None Pulmonary Medical History: Reports: None EENT Medical History: Reports: None Neurological Medical History: Reports: None Endocrine Medical History: Reports: None Renal/ Medical History: Reports: None. Denies: Hx Peritoneal Dialysis Malignancy Medical History: Reports: None GI Medical History: Reports: None Musculoskeletal Medical History: Reports None Skin Medical History: Reports None Psychiatric Medical History: Reports: None Traumatic Medical History: Reports: None Infectious Medical History: Reports: None Past Surgical History: Reports: Hx Gynecologic Surgery - ovarian cyst removal - Immunizations Hx Diphtheria, Pertussis, Tetanus Vaccination: No Vertical Provider Document - CONSTITUTIONAL Agree With Documented VS: Yes Exam Limitations: No Limitations General Appearance: No Apparent Distress - INFECTION CONTROL TRAVEL OUTSIDE OF THE [place] IN LAST 30 DAYS: No - HEENT HEENT: Atraumatic, Normocephalic Mouth Diagram: 1 - Edema and erythema noted to the gumline, palpable indurated area of tenderness. No dental injury or broken teeth. - RESPIRATORY Respiratory: Breath Sounds Normal, No Respiratory Distress - CARDIOVASCULAR Cardiovascular: Regular Rate, Regular Rhythm - GI/ABDOMEN Gastrointestinal: Abdomen Soft, Abdomen Non-Tender, Normal Bowel Sounds - NEURO Level of Consciousness: Awake, Alert, Appropriate - DERM Integumentary: Warm, Dry, No Rash Course - Re-evaluation Re-evalutation: 07/21/19 12:01 Very small incision was made with an 11 blade scalpel to the right lower mouth over the area of swelling and erythema. There is no exudate or purulent discharge. Small amount of bleeding noted. Patient tolerated very well. I will treat the patient with oral antibiotics and given strict return precautions. - Vital Signs Vital signs: Temp Pulse Resp BP Pulse Ox 97.9 F 62 20 154/81 H 100 07/21/19 10:15 07/21/19 10:15 07/21/19 10:15 07/21/19 10:15 07/21/19 10:15 Discharge - Discharge Clinical Impression: Dental abscess Condition: Stable Disposition: HOME, SELF-CARE Additional Instructions: Today you were seen in the emergency department for a dental abscess. I did not make an incision to the gumline which did not expel any pus but only blood. This will continue to drain intermittently. He will be placed on oral antibiotics for 1 week. Please take as prescribed. Please return the emergency department if the abscess worsens, you develop facial pain or swelling, fever, difficulty breathing or swallowing or any other concerning signs or symptoms. Dental Infection or Abscess You have an infection, perhaps an abscess (pus formation) of the gum around one of your teeth, which is probably decayed. If there is an abscess, it may drain on its own or it may need to be opened or lanced. Severe swelling or drainage around a tooth usually means a deep dental abscess which usually requires evaluation and treatment by a dentist or oral surgeon. Antibiotics may be prescribed while awaiting dental treatment. If you develop high fever with chills, worsening pain, or increasing swelling in the area, see a dentist or oral surgeon immediately or return to the Emergency Department immediately. Prescriptions: Penicillin V Potassium [Penicillin Vk 500 mg Tablet] 500 mg PO QID 7 Days #28 tablet Referrals: ANANT CALLAHAN MD [Primary Care Provider] - Follow up as needed
[2019-07-21 11:49] VITALS: BP 145/93
== END 2019-07-21 11:51 | disposition home or self-care (01) ==
LOC: ER 10:11
PROC: 0C96XZZ Drainage of Lower Gingiva, External Approach (ICD-10-PCS; principal; 2019-07-21)
DX: K04.7 Periapical abscess without sinus (principal); R22.0 Localized swelling, mass and lump, head; K08.89 Other specified disorders of teeth and supporting structures
CPT/HCPCS: 99282

== ENCOUNTER 2020-12-12 13:36 | Emergency (ER) | payer BC, OTHER ==
[2020-12-12 13:53] VITALS: BP 146/67
--- NOTE | 2020-12-12 14:03 | ER Document Report ---
ED Skin Rash/Insect Bite/Abscs - General Chief Complaint: Skin Problem Stated Complaint: RASH Time Seen by Provider: 12/12/20 13:53 Primary Care Provider: ANANT CALLAHAN MD [Primary Care Provider] - Follow up as needed Mode of Arrival: Ambulatory Information source: Patient TRAVEL OUTSIDE OF THE [place] IN LAST 30 DAYS: No - HPI Patient complains to provider of: Skin rash/lesion Notes: Patient here with complaints of generalized rash is very itchy. Is been present for the last several days. Seems to be getting somewhat worse and is now spreading down her wrist into her hands. She denies any new soaps, detergents, lotions, medications. No specific exposures. She denies fever. She denies sor e throat. No chest pain or shortness of breath. No abdominal pain. No nausea, vomiting, diarrhea. Rash is very itchy. It somewhat better with calamine lotion, but nothing in particular really makes it much better. No severe headache or blurred vision. No numbness, tingling, weakness. No other complaints. - Related Data Allergies/Adverse Reactions: No Known Allergies Allergy (Verified 07/21/19 10:12) Past Medical History - Social History Smoking Status: Unknown if Ever Smoked Frequency of alcohol use: None Drug Abuse: None Family History: Reviewed & Not Pertinent Renal/ Medical History: Denies: Hx Peritoneal Dialysis Past Surgical History: Reports: Hx Gynecologic Surgery - ovarian cyst removal - Immunizations Hx Diphtheria, Pertussis, Tetanus Vaccination: No Review of Systems - Review of Systems -: Yes All other systems reviewed and negative Physical Exam - Vital signs Vitals: Temp Pulse Resp BP Pulse Ox 98.4 F 86 20 146/67 H 100 12/12/20 13:50 12/12/20 13:50 12/12/20 13:50 12/12/20 13:50 12/12/20 13:50 - Notes Notes: GENERAL: alert, cooperative, nontoxic, no distress. HEAD: normocephalic, atraumatic EYES: conjunctiva pink without discharge, no external redness or swelling. EARS: no external swelling, no external redness NOSE: atraumatic, no external swelling MOUTH/THROAT: mucous membranes moist and pink NECK: soft, supple, full range of motion, no meningismus. CHEST: no distress, lungs clear and equal throughout. No wheezing, rales, rhonchi. CARDIAC: regular rate and rhythm, no murmur EXTREMITIES: full range of motion of all extremities. No redness, no swelling. NEURO: alert and oriented 3, no focal deficits, full range of motion of all extremities. PYSCH: appropriate mood, affect. Patient is cooperative. SKIN: pink, warm, dry, diffuse papular rash with areas of excoriation from scratching to the trunk, arms, upper buttocks, wrists and the base of the palm of the right hand. Also on the dorsum of the left hand. No surrounding redness. No vesicles or petechiae. Course - Re-evaluation Re-evalutation: 12/12/20 14:07 Patient nontoxic-appearing stable vitals. Here with complaints of an itchy rash. On exam patient has a rash consistent with scabies also with some excoriated areas from scratching. There is no signs of infection at this time. Patient will be discharged home with a prescription for Elimite as well as prednisone and instructions to take nondrowsy antihistamine during the day and Benadryl at night to help with itching. She can retreat in 1 week. Follow-up if not better in the next 1 to 2 weeks, sooner for worsening rash, high fever, persistent vomiting, difficulty breathing or swallowing, or any further concerns. Patient with no signs of systemic illness, or anaphylaxis. The patient's emergency department workup and current diagnosis were explained to the patient and or family. Follow-up instructions were provided. Medications if prescribed were discussed. Instructions for when to return to the emergency department including specific worrisome symptoms were discussed with the patient and/or family. - Vital Signs Vital signs: Temp Pulse Resp BP Pulse Ox 98.4 F 86 20 146/67 H 100 12/12/20 13:50 12/12/20 13:50 12/12/20 13:50 12/12/20 13:50 12/12/20 13:50 - Laboratory Results Critical Laboratory Results Reviewed: No Critical Results - Radiology Results Critical Radiology Results Reviewed: No Critical Results Discharge - Discharge Clinical Impression: Scabies, Dermatitis Condition: Stable Disposition: HOME, SELF-CARE Instructions: Scabies ([facility]) Additional Instructions: Take medication as prescribed. Take a nondrowsy antihistamine during the daytime such as Claritin or Odilia or Zyrtec. You can take 50 mg of Benadryl at nighttime to help with the itching. After using the scabies treatment, wash everything in hot water, vacuum all furniture and carpet. Follow-up if not better in 1 week, sooner for worsening rash, fever, difficulty breathing or swallowing, persistent vomiting, or any further concerns. Prescriptions: Permethrin [Acticin 5% Cream 60 gm] 1 applic TP ONCE PRN #2 tube PRN Reason: Prednisone [Deltasone 20 mg Tablet] 40 mg PO DAILY #10 tablet Forms: Return to Work Referrals: ANANT CALLAHAN MD [Primary Care Provider] - Follow up as needed
== END 2020-12-12 14:11 | disposition home or self-care (01) ==
LOC: ER 13:36
DX: B86 Scabies (principal); L30.9 Dermatitis, unspecified
CPT/HCPCS: 99283